=== PATIENT | male | born 1995 | race Caucasian/White ===

== ENCOUNTER 2022-07-20 16:41 | Emergency (ER) | payer SELFPAY ==
[2022-07-20] MEDS ORDERED: Lorazepam 1 MG TAB ONE (17:35)
== END 2022-07-20 18:10 | disposition home or self-care (01) ==
LOC: MADERS 16:41
DX: F41.9 Anxiety disorder, unspecified (principal); R07.9 Chest pain, unspecified; F17.220 Nicotine dependence, chewing tobacco, uncomplicated
CPT/HCPCS: 93005